=== PATIENT | female | born 1990 | race Caucasian/White ===

== ENCOUNTER 2020-04-15 04:11 | Emergency (ER) | payer BC, OTHER ==
[2020-04-15 04:18] VITALS: BP 142/108; PULSE 76; RESP 18; TEMP 98
[2020-04-15] MEDS ORDERED: CEPHALEXIN 500 MG CAP PO STA (04:30)
[2020-04-15] MEDS ORDERED: CEPHALEXIN 500MG STARTER PACK 4 CAP BTL PO STA (04:30)
--- NOTE | 2020-04-15 04:30 | ED ---
Extremity Problem HPI - General Chief complaint: Skin/Abscess/Foreign Body Stated complaint: Foot Pain Time Seen by Provider: 04/15/20 04:12 Source: patient, RN notes reviewed, old records reviewed Mode of arrival: ambulatory Limitations: no limitations - History of Present Illness Initial comments: This is a 29-year-old female ER for evaluation, patient presents to the ER today for evaluation regarding foot pain patient does have current right states great toe pain secondary to ingrown toenail. Patient has noticed mild drainage from that toe. Otherwise no injuries noted. MD Complaint: other (R great toe pain, ingrown toenail) -: month(s) Location: right, toe (great toe) Radiation: distal Severity scale (1-10): 6 Quality: stabbing Consistency: constant Improves with: nothing Worsens with: nothing Associated Symptoms: denies other symptoms - Related Data Home Medications Medication Instructions Recorded Confirmed Amitriptyline HCl [Elavil] 3 tab PO DAILY 09/13/14 09/13/14 Levothyroxine Sodium [Synthroid] 1 tab PO DAILY 09/13/14 09/13/14 Phentermine HCl [Adipex-P] 1 tab PO DAILY 09/13/14 09/13/14 metFORMIN HCL [Glucophage] 1 tab PO BID 09/13/14 09/13/14 Allergies Allergy/AdvReac Type Severity Reaction Status Date / Time morphine AdvReac Hallucinati Verified 04/15/20 04:18 ons Review of Systems ROS Statement: Those systems with pertinent positive or pertinent negative responses have been documented in the HPI. ROS Other: All systems not noted in ROS Statement are negative. Past Medical History Past Medical History: Thyroid Disorder Additional Past Medical History / Comment(s): insulin resistance History of Any Multi-Drug Resistant Organisms: None Reported Past Surgical History: Section Past Psychological History: No Psychological Hx Reported Smoking Status: Never smoker Past Alcohol Use History: None Reported Past Drug Use History: None Reported General Exam Limitations: no limitations General appearance: alert, in no apparent distress Head exam: Present: atraumatic, normocephalic, normal inspection Eye exam: Present: normal appearance, PERRL, EOMI. Absent: scleral icterus, conjunctival injection, periorbital swelling ENT exam: Present: normal exam, mucous membranes moist Neck exam: Present: normal inspection. Absent: tenderness, meningismus, lymphadenopathy Respiratory exam: Present: normal lung sounds bilaterally. Absent: respiratory distress, wheezes, rales, rhonchi, stridor Cardiovascular Exam: Present: regular rate, normal rhythm, normal heart sounds. Absent: systolic murmur, diastolic murmur, rubs, gallop, clicks GI/Abdominal exam: Present: soft, normal bowel sounds. Absent: distended, tenderness, guarding, rebound, rigid Extremities exam: Present: normal inspection, full ROM, normal capillary refill, other (R ingrown toenail). Absent: tenderness, pedal edema, joint swelling, calf tenderness Back exam: Present: normal inspection Neurological exam: Present: alert, oriented X3, CN II-XII intact Psychiatric exam: Present: normal affect, normal mood Skin exam: Present: warm, dry, intact, normal color. Absent: rash Course Vital Signs 04/15/20 04:16 Temperature 98 F Pulse Rate 76 Respiratory 18 Rate Blood Pressure 142/108 O2 Sat by Pulse 99 Oximetry - Reevaluation(s) Reevaluation #1: 04/15/20 04:29 medical record is reviewed Reevaluation #2: 04/15/20 04:29 patients pain is controlled Medical Decision Making - Medical Decision Making 29 female to the ED co R great toe pain, ingrown toenail. Disposition Clinical Impression: Ingrown right big toenail Disposition: HOME SELF-CARE Condition: Good Instructions (If sedation given, give patient instructions): Ingrown Nail (ED) Is patient prescribed a controlled substance at d/c from ED?: No Referrals: None,Stated [Primary Care Provider] - 1-2 days
== END 2020-04-15 04:51 | disposition home or self-care (01) ==
LOC: EC 04:11
DX: L60.0 Ingrowing nail (principal); E07.9 Disorder of thyroid, unspecified; Z79.899 Other long term (current) drug therapy; Z79.890 Hormone replacement therapy; Z79.84 Long term (current) use of oral hypoglycemic drugs; Z88.5 Allergy status to narcotic agent
CPT/HCPCS: 99283

== ENCOUNTER 2020-06-09 15:01 | Emergency (ER) | payer OTHER ==
[2020-06-09 15:06] VITALS: BP 137/91; PULSE 93; RESP 16; TEMP 98.3
--- NOTE | 2020-06-09 15:18 | ED ---
Fall HPI - General Chief Complaint: Fall Stated Complaint: Fall, head pain, back pain Time Seen by Provider: 06/09/20 15:10 Source: patient, RN notes reviewed Mode of arrival: ambulatory - History of Present Illness Initial Comments: Patient is 22-year-old female presents emergency department after being sent here from [facility] urgent care. She noted that she fell last night while trying to get out of her car. She noted that she stepped out foot slipped out from under and she kind of slid out of her car hit her tailbone on a lump of ice and then hit her head on the running board of her car. She denied any loss of consciousness change in vision. She noted that she went to urgent care strictly because her tailbone was sore and she wanted to get it checked out. Dr. Gillespie may be centered emergency room due to her saying that she also hit her head and was having a mild headache. She stated that the pain is about a 5 out of 10 currently and does not want pain medication as she is breast-feeding and took Motrin before she went to urgent care. She denied any chest pain first breath headache nausea vomiting diarrhea constipation fever fatigue chills change in vi desiree weakness numbness tingling. - Related Data Home Medications Medication Instructions Recorded Confirmed Amitriptyline HCl [Elavil] 3 tab PO DAILY 09/13/14 09/13/14 Levothyroxine Sodium [Synthroid] 1 tab PO DAILY 09/13/14 09/13/14 Phentermine HCl [Adipex-P] 1 tab PO DAILY 09/13/14 09/13/14 metFORMIN HCL [Glucophage] 1 tab PO BID 09/13/14 09/13/14 Previous Rx's Medication Instructions Recorded Cephalexin [Keflex] 500 mg PO Q8HR #21 cap 04/15/20 Allergies Allergy/AdvReac Type Severity Reaction Status Date / Time morphine AdvReac Hallucinati Verified 06/09/20 15:06 ons Review of Systems ROS Statement: Those systems with pertinent positive or pertinent negative responses have been documented in the HPI. ROS Other: All systems not noted in ROS Statement are negative. Past Medical History Past Medical History: Hypertension, Thyroid Disorder Additional Past Medical History / Comment(s): insulin resistance History of Any Multi-Drug Resistant Organisms: None Reported Past Surgical History: Section Past Psychological History: No Psychological Hx Reported Smoking Status: Never smoker Past Alcohol Use History: None Reported Past Drug Use History: None Reported General Exam Limitations: no limitations General appearance: alert, in no apparent distress Head exam: Present: atraumatic, normocephalic, normal inspection Eye exam: Present: normal appearance, PERRL, EOMI. Absent: scleral icterus, conjunctival injection, periorbital swelling ENT exam: Present: normal exam, mucous membranes moist Neck exam: Present: normal inspection. Absent: tenderness, meningismus, lymphadenopathy Respiratory exam: Present: normal lung sounds bilaterally. Absent: respiratory distress, wheezes, rales, rhonchi, stridor Cardiovascular Exam: Present: regular rate, normal rhythm, normal heart sounds. Absent: systolic murmur, diastolic murmur, rubs, gallop, clicks Extremities exam: Present: normal inspection, full ROM, normal capillary refill. Absent: tenderness, pedal edema, joint swelling, calf tenderness Back exam: Present: normal inspection, tenderness (And the sacrum coccyx area to mild palpation.) Neurological exam: Present: alert, oriented X3, CN II-XII intact Psychiatric exam: Present: normal affect, normal mood Skin exam: Present: warm, dry, intact, normal color. Absent: rash Course Vital Signs 06/09/20 15:03 Temperature 98.3 F Pulse Rate 93 Respiratory 16 Rate Blood Pressure 137/91 O2 Sat by Pulse 94 L Oximetry Medical Decision Making - Medical Decision Making 22-year-old female complaining of tailbone pain and headache. Status post fall last night. Skull x-ray and x-ray of the sacrum coccyx ordered. Patient denied any pain medication as she is breast-feeding and oriented Motrin. Case discussed with Dr. Hernandez, it was decided the patient to discharge home. - Radiology Data Radiology results: report reviewed, image reviewed Skull x-ray: Normal 4 view. Normal sacrum and coccyx. Disposition Clinical Impression: Fall, Contusion of sacrum Disposition: HOME SELF-CARE Condition: Stable Instructions (If sedation given, give patient instructions): Fall Prevention (ED) Additional Instructions: Please return to the Emergency Department if symptoms worsen or any other concerns. Follow-up with primary care 1-2 days. Continue to take [id number] pain medication as needed for medicine. Is patient prescribed a controlled substance at d/c from ED?: No Referrals: None,Stated [Primary Care Provider] - 1-2 days Time of Disposition: 16:20
--- NOTE | 2020-06-09 15:58 | XR ---
EXAMINATION TYPE: XR skull complete DATE OF EXAM: 06/09/2020 COMPARISON: None HISTORY: Fall TECHNIQUE: 4 view skull FINDINGS: No acute fractures are evident. The sella is normal. Soft tissues appear unremarkable. IMPRESSION: 1. Normal 4 view skull
--- NOTE | 2020-06-09 15:58 | XR ---
EXAMINATION TYPE: XR sacrum coccyx DATE OF EXAM: 06/09/2020 COMPARISON: None HISTORY: Fall, pain TECHNIQUE: Sacrum and coccyx are examined in 3 views. FINDINGS: No acute fracture or dislocation is evident. Sacrococcygeal alignment appears normal. Sacroiliac join ts are normal. Follow-up can be performed for continued pain. IMPRESSION: 1. Normal sacrum and coccyx
== END 2020-06-09 16:29 | disposition home or self-care (01) ==
LOC: EC 15:01
DX: S30.0XXA Contusion of lower back and pelvis, initial encounter (principal); R51.9 Headache, unspecified; Z88.5 Allergy status to narcotic agent; I10 Essential (primary) hypertension; E07.9 Disorder of thyroid, unspecified; Z79.890 Hormone replacement therapy; Z79.899 Other long term (current) drug therapy; W19.XXXA Unspecified fall, initial encounter; Y92.89 Other specified places as the place of occurrence of the external cause
CPT/HCPCS: 70260; 72220; 99283

== ENCOUNTER → 2021-06-30 | Outpatient (CLI) | payer BC, OTHER ==
--- NOTE | 2021-06-30 10:17 | US ---
EXAMINATION TYPE: US abdomen complete DATE OF EXAM: 06/30/2021 COMPARISON: NONE CLINICAL HISTORY: 31-year-old female R10.11 RUQ PAIN. TECHNIQUE: Multiple sonographic images of the abdomen are obtained. FINDINGS: EXAM MEASUREMENTS: Liver Length: 19.1 cm Gallbladder Wall: 0.19 cm CBD: 0.49 cm Spleen: 13.4 cm Right Kidney: 11.5 x 5.3 x 4.1 cm Left Kidney: 11.0 x 4.9 x 4.4 cm Open Hearth Door Liner notes: Limited due to overlying bowel gas. Pancreas: Suboptimal visualization due to attenuation from the liver and bowel gas shadowing. Liver: Appears heterogeneous with increased attenuation and echogenicity. Mildly enlarged. Focal fat ty sparing along the gallbladder fossa measuring 2.8 x 1.6 x 1.5 cm. Gallbladder: Small calculi suggested at the neck of the gallbladder measuring up to 8 mm. No abnormal distention, wall thickening, or surrounding fluid. Evidence for sonographic Brown's sign: No CBD: Portions seen appear wnl. Spleen: Appears wnl. Right Kidney: Appearance of possible column of Javi. No hydronephrosis. Left Kidney: Anechoic area seen central upper to mid pole 2.6 x 1.2 x 0.7 cm-possible mild pelvicali ectasis. Upper IVC: Limited visibility. Abd Aorta: Appears to be wnl IMPRESSION: 1. Mild hepatomegaly (19.1 cm) with moderate to severe hepatic steatosis. 2. Suspect small gallstones measuring up to 8 mm. No ancillary findings of acute cholecystitis. 3. No biliary ductal dilatation. 4. There may be mild left-sided pelvicaliectasis, probably transient. Correlate for any left-sided ab dominal symptoms/renal colic or hematuria. Short interval follow-up ultrasound can be considered to r eassess the collecting system.
== END | disposition home or self-care (01) ==
LOC: RADUSWWP 07:32
PROVIDERS: ATTEND Family Medicine
DX: K76.0 Fatty (change of) liver, not elsewhere classified (principal); R16.0 Hepatomegaly, not elsewhere classified
CPT/HCPCS: 76700

== ENCOUNTER 2023-08-26 10:34 | Emergency (ER) | payer BC, OTHER ==
[2023-08-26 10:45] VITALS: RESP 16
--- NOTE | 2023-08-26 11:46 | ED ---
Lower Extremity Injury HPI - General Chief Complaint: Extremity Injury, Lower Stated Complaint: IHS-Injured L ankle Time Seen by Provider: 08/26/23 11:45 Source: patient, RN notes reviewed Mode of arrival: ambulatory Limitations: no limitations - History of Present Illness Initial Comments: 33-year-old female presenting to the ER with a chief complaint of left ankle injury. Patient states yesterday when walking and when she accidentally tripped on the carpet inverting her ankle. She is reporting most of her pain over the lateral malleolus. She reports a mild tingling sensation. She reports the pain was tolerable yesterday as she was taking ibuprofen. She woke up this morning and was in extreme pain and barely able to walk. Patient states she has been wearing a boot. She denies any other injuries from the incident. No other complaints at this time. - Related Data Home Medications Medication Instructions Recorded Confirmed Amitriptyline HCl [Elavil] 3 tab PO DAILY 09/13/14 09/13/14 Levothyroxine Sodium [Synthroid] 1 tab PO DAILY 09/13/14 09/13/14 Phentermine HCl [Adipex-P] 1 tab PO DAILY 09/13/14 09/13/14 metFORMIN HCL [Glucophage] 1 tab PO BID 09/13/14 09/13/14 Previous Rx's Medication Instructions Recorded Cephalexin [Keflex] 500 mg PO Q8HR #21 cap 04/15/20 Allergies Allergy/AdvReac Type Severity Reaction Status Date / Time morphine AdvReac Hallucinati Verified 08/26/23 10:40 ons Review of Systems ROS Statement: Those systems with pertinent positive or pertinent negative responses have been documented in the HPI. ROS Other: All systems not noted in ROS Statement are negative. Past Medical History Past Medical History: Hypertension, Thyroid Disorder Additional Past Medical History / Comment(s): insulin resistance History of Any Multi-Drug Resistant Organisms: None Reported Past Surgical History: Section Past Psychological History: No Psychological Hx Reported Smoking Status: Never smoker Past Alcohol Use History: None Reported Past Drug Use History: Marijuana General Exam Limitations: no limitations General appearance: alert, in no apparent distress Respiratory exam: Present: normal lung sounds bilaterally. Absent: respiratory distress, wheezes, rales, rhonchi, stridor Cardiovascular Exam: Present: regular rate, normal rhythm, normal heart sounds. Absent: systolic murmur, diastolic murmur, rubs, gallop, clicks Extremities exam: Present: tenderness (Lateral malleolus. Base of fifth metatarsal. 2+ dorsalis pedis pulse. Sensation intact.), normal capillary refill, other (Mild edema to lateral foot.). Absent: pedal edema, joint swelling, calf tenderness Neurological exam: Present: alert, oriented X3, CN II-XII intact Course Vital Signs 08/26/23 08/26/23 10:37 11:53 Temperature 98.4 F 98.1 F Pulse Rate 108 H 99 Respiratory 16 16 Rate Blood Pressure 137/85 131/82 O2 Sat by Pulse 97 99 Oximetry Medical Decision Making - Medical Decision Making Was pt. sent in by a medical professional or institution (, PA, RELIEF DOCKING MASTER, urgent care, hospital, or fci...) When possible be specific @ -No Did you speak to anyone other than the patient for history (EMS, parent, family, police, friend...)? What history was obtained from this source @ -No Did you review nursing and triage notes (agree or disagree)? Why? @ -I reviewed and agree with nursing and triage notes Were old charts reviewed (outside hosp., previous admission, EMS record, old EKG, old radiological studies, urgent care reports/EKG's, fci records)? Report findings @ -No old charts were reviewed Differential Diagnosis (chest pain, altered mental status, abdominal pain women, abdominal pain men, vaginal bleeding, weakness, fever, dyspnea, syncope, headache, dizziness, GI bleed, back pain, seizure, CVA, palpatations, mental health, musculoskeletal)? @ -Differential Musculoskeletal: Muscular strain, contusion, ligament sprain, fracture, arthritis, septic arthritis, bursitis, cellulitis, muscle spasm, nerve compression, DVT, arterial occlusion, herpes zoster, electrolyte abnormality, tumor.... This is not meant to be in all inclusive list EKG interpreted by me (3pts min.). @ -None X-rays interpreted by me (1pt min.). @ -Left foot and ankle x-rays interpreted by me significant for mild soft tissue swelling over lateral malleolus. No acute fractures or dislocations. CT interpreted by me (1pt min.). @ -None done U/S interpreted by me (1pt. min.). @ -None done What testing was considered but not performed or refused? (CT, X-rays, U/S, labs)? Why? @ -None What meds were considered but not given or refused? Why? @ -None Did you discuss the management of the patient with other professionals (lewis chopra i.e. , PA, RELIEF DOCKING MASTER, lab, RT, psych nurse, social media director, upper doubler, teacher, postal delivery officer, disability case manager)? Give summary @ -No Was smoking cessation discussed for >3mins.? @ -No Was critical care preformed (if so, how long)? @ -No Were there social determinants of health that impacted care today? How? (Homelessness, low income, unemployed, alcoholism, drug addiction, transportation, low edu. Level, literacy, decrease access to med. care, shelter, rehab)? @ -No Was there de-escalation of care discussed even if they declined (Discuss DNR or withdrawal of care, Hospice)? DNR status @ -No What co-morbidities impacted this encounter? (DM, HTN, Smoking, COPD, CAD, Cancer, CVA, ARF, Chemo, Hep., AIDS, mental health diagnosis, sleep apnea, morbid obesity)? @ -None Was patient admitted / discharged? Hospital course, mention meds given and route, prescriptions, significant lab abnormalities, going to OR and other pertinent info. @ -Discharge. 33-year-old female presented to the ER with a chief complaint of left ankle injury. History and physical exam completed. Vitals stable. Patient in no signs of acute distress and nontoxic-appearing. Left lower extremity neurovascular intact. Mild tenderness and edema to lateral malleolus. X-rays obtained and interpreted by me negative for acute fractures or dislocations. Patient refused analgesic medication. Results discussed with patient, all questions answered. I discussed conservative treatment. Return parameters discussed. Patient discharged in stable condition with follow-up to orthopedics, referral given. Patient verbally expressed understanding and agreement with care plan. Case discussed with ED attending, Dr. Otero. Undiagnosed new problem with uncertain prognosis? @ -No Drug Therapy requiring intensive monitoring for toxicity (Heparin, Nitro, Insulin, Cardizem)? @ -No Were any procedures done? @ -No Diagnosis/symptom? @ -Ankle sprain Acute, or Chronic, or Acute on Chronic? @ -Acute Uncomplicated (without systemic symptoms) or Complicated (systemic symptoms)? @ -Uncomplicated Side effects of treatment? @ -No Exacerbation, Progression, or Severe Exacerbation? @ -No Poses a threat to life or bodily function? How? (Chest pain, USA, MD, pneumonia, PE, COPD, DKA, ARF, appy, cholecystitis, CVA, Diverticulitis, Homicidal, Suicidal, threat to staff... and all critical care pts) @ -No - Radiology Data Radiology results: report reviewed, image reviewed Disposition Clinical Impression: Ankle sprain Disposition: HOME SELF-CARE Condition: Stable Instructions (If sedation given, give patient instructions): Ankle Sprain (ED) Additional Instructions: You may take [id number] Tylenol and Motrin for pain control. Follow-up with orthopedics if symptoms persist. Return to the ER for any new or worsening concerns. Is patient prescribed a controlled substance at d/c from ED?: No Referrals: Prashant Murguia DO [Primary Care Provider] - 1-2 days Juan Carlos Thompson DO [Doctor of Osteopathic Medicine] - 1-2 days Time of Disposition: 12:19
--- NOTE | 2023-08-26 11:57 | XR ---
EXAMINATION TYPE: XR ankle complete 3 views LT, XR foot complete 3 views LT DATE OF EXAM: 08/26/2023 Comparison: None Clinical History: 33-year-old female with lateral pain after injury Findings: Ankle: Ankle mortise is congruent with preservation of the distal tibiofibular overlap. Talar dome is intact . Circumferential soft tissue swelling. Small plantar heel spur. Subtalar joint align. Small delineat ion to the Achilles tendon. Foot: Type I accessory navicular. No acute fracture, subluxation, dislocation is seen. Impression (ankle and foot): Some circumferential soft tissue swelling at the ankle. No acute osseous abnormality seen.
[2023-08-26 12:56] VITALS: BP 126/78; PULSE 84; TEMP 97.8
== END 2023-08-26 12:36 | disposition home or self-care (01) ==
LOC: EC 10:34
DX: S93.402A Sprain of unspecified ligament of left ankle, initial encounter (principal); F12.90 Cannabis use, unspecified, uncomplicated; Z88.5 Allergy status to narcotic agent; W18.40XA Slipping, tripping and stumbling without falling, unspecified, initial encounter; Y93.01 Activity, walking, marching and hiking
CPT/HCPCS: 99283

== ENCOUNTER 2024-10-01 12:24 | Outpatient (CLI) | payer BC, OTHER ==
[2024-10-01 12:44] LABS: Glucose,Whole Blood 164 mg/dL (70-110)
[2024-10-01 13:17] LABS: Appearance,Urine Clear (Clear); Bacteria,Urine Rare /hpf; Bilirubin,Urine Negative (Negative); Blood,Urine Negative (Negative); Color,Urine Colorless; Glucose,Urine (UA) Negative (Negative); Ketones,Urine Negative (Negative); Leukocyte Esterase,Urine Moderate (Negative); Mucus,Urine Rare /hpf; Nitrite,Urine Negative (Negative); PH, Urine 6.5 (5.0-8.0); Protein,Urine Negative (Negative); Specific Gravity,Urine 1.018 (1.001-1.035); Squamous Epithelial Cell,Urine 5 /hpf (0-4); Urobilinogen,Urine <2.0 mg/dL (<2.0); WBC,Urine 2 /hpf (0-5)
[2024-10-01] MEDS: LACTATED RINGERS 1,000 ML IV SCH (13:41)
[2024-10-01 15:07] VITALS: BP 123/79; PULSE 93; RESP 18; TEMP 98.1
--- NOTE | 2024-10-19 11:30 | P.MSEPDOC ---
Presenting Problems - Arrival Data Date of Arrival on Unit: 10/01/24 Time of Arrival on Unit: 12:24 Mode of Transport: Ambulatory - Complaint OB-Reason for Admission/Chief Complaint: Vaginal Bleeding Comment: pink spotting when wiping, cramping with movement Medical History - Information : 3 Para: 1 Term: 1 : 0 Abortions: Spontaneous or Elective: 1 Number of Living Children: 1 - Gestational Age Gestational Age by GERONIMO (wks/days): 32 Weeks and 6 Days - History Complications: Prior Comment: Pre e & HELLP with previous delivery, uterine repair and blood transfusion Review of Systems - Review of Systems Constitutional: No problems Breast: No problems ENT: No problems Cardiovascular: No problems Respiratory: No problems Gastrointestinal: No problems Genitourinary: No problems Musculoskeletal: No problems Neurological: No problems Skin: No problems Vital Signs - Temperature Temperature: 98.1 F Temperature Source: Temporal Artery Scan - Pulse Right Sitting Brachial Pulse Rate: 93 Pulse Assessment Method: Automatic Cuff - Respirations Respiratory Rate: 18 Oxygen Delivery Method: Room Air O2 Sat by Pulse Oximetry: 98 - Blood Pressure Right Arm Sitting Blood Pressure: 123/79 Blood Pressure Mean: 93 Blood Pressure Source: Automatic Cuff Medical Screen Scoring - Cervical Exam Dilation (cm): 0 Effacement (%): 0 Station: -3 Membranes: Intact - Uterine Contractions Frequency From (mins): 2 Frequency To (mins): 5 Duration From (seconds): 40 Duration To (seconds): 60 Intensity: Mild Resting: Soft to palpation - Assessment - Baby A Baseline FHR: 145 Heart Rate - NICHD Category: Category I (Normal) NST: Reactive Physician Notification - Physician Notified Physician Notified Date: 10/01/24 Physician Notified Time: 15:06 Physician: Ever Quinones New Order Received: Yes (dc home) - Notification Comment Comment: Follow up with own ob Maternal Triage Index - Maternal Triage Index Presenting for scheduled procedure w/no complaint: No - Stat/Priority 1 Stat Priority 1: No - Urgent/Priority 2 Urgent Priority 2: Yes Provider Notified: Ever Quinones Provider Notified Time: 13:30 Criteria Met for Priority 2: spec with no blood present, cervix closed, no pain with contractions, IV fluids [id number] Disposition - Disposition OB Disposition: Discharge to home, Written follow up instructions reviewed Discharge Date: 10/01/24 Discharge Time: 15:07 I agree with the RN Medical Screening Exam: Yes Physician's MSE Comment: I have neither seen nor examined the patient. Case reviewed; plan agreed upon as documented in EMR&OBIX.: Yes Diagnosis: RELATED CONDITIONS, UNSPECIFIED, THIRD TRIMESTER
== END 2024-10-01 15:08 | disposition home or self-care (01) ==
LOC: FBPOP 12:24
PROVIDERS: ATTEND Obstetrics & Gynecology
DX: O46.93 Antepartum hemorrhage, unspecified, third trimester (principal); Z3A.32 32 weeks gestation of pregnancy; Z88.5 Allergy status to narcotic agent
CPT/HCPCS: 36415; 59025; 81001; 96360; 99214

== ENCOUNTER 2024-11-04 21:40 | Outpatient (CLI) | payer OTHER ==
[2024-11-04 23:43] VITALS: BP 128/92; PULSE 82; RESP 18; TEMP 96.3
--- NOTE | 2024-12-07 09:55 | P.MSEPDOC ---
Presenting Problems - Arrival Data Date of Arrival on Unit: 11/04/24 Time of Arrival on Unit: 21:40 Mode of Transport: Wheelchair - Complaint OB-Reason for Admission/Chief Complaint: PIH, Other Comment: Pt complaint of chest pain and high blood pressures. Pt is 5 days post delivered at [facility]. Medical History - Gestational Age Gestational Age by GERONIMO (wks/days): 37 Weeks and 5 Days - History Complications: Preeclampsia Review of Systems - Review of Systems Constitutional: No problems Breast: No problems ENT: No problems Cardiovascular: Chest pain Respiratory: No problems Gastrointestinal: No problems Genitourinary: No problems Musculoskeletal: No problems Neurological: No problems Skin: No problems Vital Signs - Temperature Temperature: 96.3 F Temperature Source: Temporal Artery Scan - Pulse Pulse Oximetery Pulse Rate: 82 Pulse Assessment Method: Pulse Oximetry - Respirations Respiratory Rate: 18 Oxygen Delivery Method: Room Air O2 Sat by Pulse Oximetry: 97 - Blood Pressure Right Arm Blood Pressure: 128/92 Blood Pressure Mean: 104 Blood Pressure Source: Automatic Cuff Physician Notification - Physician Notified Physician Notified Date: 11/04/24 Physician Notified Time: 21:57 Physician: Denisa Arteaga New Order Received: Yes - Notification Comment Comment: Reported on patient DOM 5 days post delivered at [facility] early for preeclampsia symptoms. Blood pressure readings reviewed. Pt on lasix for blood pressure. Reported pt has 5/10 constant stabbing chest pain. Orders to send patient to ER for complaint of chest pain. Maternal Triage Index - Stat/Priority 1 Stat Priority 1: No - Urgent/Priority 2 Urgent Priority 2: No - Prompt/Priority 3 Prompt Priority 3: No - Non-Urgent/Priority 4 Non-Urgent Priority 4: Yes Criteria Met for Priority 4: Pt is 5 days post delivered at [facility]. Pt complaint of chest pain and high blood pressures. Disposition - Disposition OB Disposition: Transfer to other dept./facility Transferred to:: To ER @[id number] Discharge Date: 11/04/24 Discharge Time: 22:15 I agree with the RN Medical Screening Exam: Yes Case reviewed; plan agreed upon as documented in EMR&OBIX.: Yes Comments: patient transferred to the Ed based on clinical status Diagnosis: OTHER SPECIFIED COMPLICATIONS OF LABOR AND DELIVERY
== END 2024-11-04 22:15 | disposition home or self-care (01) ==
LOC: FBPOP 21:40
PROVIDERS: ATTEND Obstetrics & Gynecology Obstetrics
DX: O14.93 Unspecified pre-eclampsia, third trimester (principal); Z3A.37 37 weeks gestation of pregnancy; Z88.5 Allergy status to narcotic agent
CPT/HCPCS: 99213; 99215

== ENCOUNTER 2024-11-04 22:16 | Emergency (ER) | payer OTHER ==
[2024-11-04 22:26] VITALS: TEMP 98.3
--- NOTE | 2024-11-04 22:41 | ED ---
Chest Pain HPI - General Chief Complaint: Chest Pain Stated Complaint: Chest pain Time Seen by Provider: 11/04/24 22:27 Source: patient, family Mode of arrival: wheelchair Limitations: no limitations - History of Present Illness Initial Comments: This patient is a 34-year-old woman with history of section 5 days ago due to developing preeclampsia. The patient arrives today to have evaluation of sharp substernal chest pain that started approximate hour ago while at rest. The patient also had some associated shortness of breath which has resolved. She has not noted any other associated symptoms. Patient denies leg pain. She has had some bilateral edema since the that she states is approximately unchanged. MD Complaint: chest pain Onset/Timin -: hour(s) Onset: during rest Pain Location: substernal Severity: moderate Quality: sharp Consistency: constant Improves With: nothing Worsens With: nothing Anginal Symptoms: dyspnea Treatments Prior to Arrival: none - Related Data Home Medications Medication Instructions Recorded Confirmed Furosemide [Lasix] 20 mg PO DAILY 11/04/24 11/04/24 Ibuprofen [Motrin] 600 mg PO Q6HR PRN 11/04/24 11/04/24 Allergies Allergy/AdvReac Type Severity Reaction Status Date / Time morphine AdvReac Hallucinati Verified 11/04/24 22:26 ons Review of Systems ROS Statement: Those systems with pertinent positive or pertinent negative responses have been documented in the HPI. ROS Other: All systems not noted in ROS Statement are negative. Constitutional: Denies: fever, chills, weakness Respiratory: Reports: as per HPI, dyspnea. Denies: cough Cardiovascular: Reports: as per HPI, chest pain, edema. Denies: palpitations, orthopnea, syncope Gastrointestinal: Denies: abdominal pain, nausea, vomiting, diarrhea, melena, hematochezia Genitourinary: Denies: dysuria, hematuria Musculoskeletal: Denies: back pain Skin: Denies: rash Neurological: Denies: headache, weakness, numbness Hematological/Lymphatic: Denies: easy bleeding EKG Findings - EKG Results: EKG: interpreted by OXANAD, sinus rhythm (Rate 81 bpm), normal axis, normal QRS, normal ST/T, no acute changes Past Medical History Past Medical History: Hypertension, Thyroid Disorder Additional Past Medical History / Comment(s): insulin resistance History of Any Multi-Drug Resistant Organisms: None Reported Past Surgical History: Section Past Psychological History: No Psychological Hx Reported Smoking Status: Never smoker Past Alcohol Use History: None Reported Past Drug Use History: None Reported General Exam Limitations: no limitations General appearance: alert, in no apparent distress Head exam: Present: atraumatic, normocephalic Eye exam: Present: normal appearance. Absent: scleral icterus, conjunctival injection Neck exam: Present: normal inspection Respiratory exam: Present: normal lung sounds bilaterally. Absent: respiratory distress, wheezes, rales, rhonchi, stridor, chest wall tenderness, accessory muscle use Cardiovascular Exam: Present: regular rate, normal rhythm, normal heart sounds. Absent: systolic murmur, diastolic murmur, rubs, gallop GI/Abdominal exam: Present: soft. Absent: distended, tenderness, guarding, rebound, rigid, mass, pulsatile mass Extremities exam: Present: normal inspection, normal capillary refill, pedal edema (Trace edema at the ankles bilaterally). Absent: calf tenderness Back exam: Present: normal inspection. Absent: CVA tenderness (R), CVA tenderness (L) Neurological exam: Present: alert Skin exam: Present: warm, dry, intact, normal color. Absent: rash Course Vital Signs 11/04/24 11/05/24 11/05/24 22:23 00:24 01:00 Temperature 98.3 F Pulse Rate 89 88 70 Respiratory 18 16 16 Rate Blood Pressure 134/87 132/82 140/82 O2 Sat by Pulse 98 100 98 Oximetry 11/05/24 01:31 Temperature Pulse Rate 79 Respiratory 16 Rate Blood Pressure 128/72 O2 Sat by Pulse 99 Oximetry Chest Pain MDM - MDM The patient had chest x-ray that I interpreted as negative for acute infiltrate, pneumothorax, congestive heart failure The patient had duplex Doppler study of the legs that I interpreted as negative for acute DVT. Was pt. sent in by a medical professional or institution (, PA, RN L AND D, urgent care, hospital, or fpc...) When possible be specific @ -[No] Did you speak to anyone other than the patient for history (EMS, parent, family, police, friend...)? What history was obtained from this source @ -[No] Did you review nursing and triage notes (agree or disagree)? Why? @ -[I reviewed and agree with nursing and triage notes] Were old charts reviewed (outside hosp., previous admission, EMS record, old EKG, old radiological studies, urgent care reports/EKG's, fpc records)? Report findings @ -[No old charts were reviewed] Differential Diagnosis (chest pain, altered mental status, abdominal pain women, abdominal pain men, vaginal bleeding, weakness, fever, dyspnea, syncope, headache, dizziness, GI bleed, back pain, seizure, CVA, palpatations, mental health, musculoskeletal)? @ -Differential Chest Pain: Stable Angina, Unstable Angina, STEMI, NSTEMI Aortic Dissection, Pneumothorax, Musculoskeletal, Esophageal Spasm GERD, Cholecystitis, Pancreatitis, Zoster, this is not meant to be an all-inclusive list. EKG interpreted by me (3pts min.). @ -[I interpreted as above] X-rays interpreted by me (1pt min.). @ -[I interpreted as above CT interpreted by me (1pt min.). @ -[None done] U/S interpreted by me (1pt. min.). @ -[I interpreted as above What testing was considered but not performed or refused? (CT, X-rays, U/S, labs)? Why? @ -[None] What meds were considered but not given or refused? Why? @ -[None] Did you discuss the management of the patient with other professionals (professionals i.e. , PA, RN L AND D, lab, RT, psych nurse, social worker masters, supply clerk, teacher, president and chief operating officer, immigration case manager)? Give summary @ -[No] Was smoking cessation discussed for >3mins.? @ -[No] Was critical care preformed (if so, how long)? @ -[No] Were there social determinants of health that impacted care today? How? (Homelessness, low income, unemployed, alcoholism, drug addiction, transportation, low edu. Level, literacy, decrease access to med. care, group home, rehab)? @ -[No] Was there de-escalation of care discussed even if they declined (Discuss DNR or withdrawal of care, Hospice)? DNR status @ -[No] What co-morbidities impacted this encounter? (DM, HTN, Smoking, COPD, CAD, Cancer, CVA, ARF, Chemo, Hep., AIDS, mental health diagnosis, sleep apnea, morbid obesity)? @ -[Recent delivery Was patient admitted / discharged? Hospital course, mention meds given and route, prescriptions, significant lab abnormalities, going to OR and other pertinent info. @ -[Patient is a 34-year-old woman recent with chest pain and on arrival was hypertensive. The patient is feeling better. The workup not remarkable. The patient does have mild elevation of LDH, AST ALT. 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 We discussed warning signs for preeclampsia/eclampsia and discussed the appropriate further care and follow-up. Undiagnosed new problem with uncertain prognosis? @ -[No] Drug Therapy requiring intensive monitoring for toxicity (Heparin, Nitro, Insulin, Cardizem)? @ -[No] Were any procedures done? @ -[No] Diagnosis/symptom? @ -[Acute chest pain mild hypertension Acute, or Chronic, or Acute on Chronic? @ -[Acute Uncomplicated (without systemic symptoms) or Complicated (systemic symptoms)? @ -[Uncomplicated Side effects of treatment? @ -[No] Exacerbation, Progression, or Severe Exacerbation? @ -[No] Poses a threat to life or bodily function? How? (Chest pain, [place], [place], pneumonia, PE, COPD, DKA, ARF, appy, cholecystitis, CVA, Diverticulitis, Homicidal, Suicidal, threat to staff... and all critical care pts) @ -[Requires close follow-up All treatments are based on ideal body weight as in ED triage Disposition Clinical Impression: Chest pain Disposition: HOME SELF-CARE Condition: Good Instructions (If sedation given, give patient instructions): Chest Pain (ED) Is patient prescribed a controlled substance at d/c from ED?: No Referrals: None,Stated [REFERRING] - 1-2 days
[2024-11-04 23:04] LABS: Basophils # (A) 0.02 10*3/uL (0.00-0.10); Basophils % (A) 0.2 %; Eosinophils # (A) 0.13 10*3/uL (0.04-0.35); Eosinophils % (A) 1.6 %; HCT 29.8 % (37.2-46.3); HGB 9.8 g/dL (12.0-15.0); Lymphocytes # (A) 2.87 10*3/uL (0.90-5.00); Lymphocytes % (A) 34.9 %; MCH 28.2 pg (27.0-32.0); MCHC 32.9 g/dL (32.0-37.0); MCV 85.6 fL (80.0-97.0); Monocytes # (A) 0.48 10*3/uL (0.20-1.00); Monocytes % (A) 5.8 %; Neutrophils # (A) 4.69 10*3/uL (1.80-7.70); Neutrophils % (A) 57.1 %; Platelet Count 220 10*3/uL (140-440); RBC 3.48 10*6/uL (4.10-5.20); RDW 13.5 % (11.5-14.5); WBC 8.22 10*3/uL (4.50-10.00)
[2024-11-04 23:27] LABS: ALT 50 U/L (4-34); AST 45 U/L (14-36); African American GFR (CKD) >90 (>60 ml/min/1.73 sqM); Albumin 3.2 g/dL (3.5-5.0); Alkaline Phosphatase 99 U/L (38-126); Anion Gap 6 mmol/L; Blood Urea Nitrogen 15 mg/dL (7-17); Calcium 8.9 mg/dL (8.4-10.2); Carbon Dioxide 23 mmol/L (22-30); Chloride 109 mmol/L (98-107); Glucose 79 mg/dL (74-99); LDH 275 U/L (120-246); Magnesium 2.1 mg/dL (1.6-2.3); Non-African American GFR(CKD) >90 (>60 ml/min/1.73 sqM); Potassium 3.8 mmol/L (3.5-5.1); Sodium 138 mmol/L (137-145); Total Protein 6.0 g/dL (6.3-8.2); Uric Acid 5.8 mg/dL (3.7-7.4)
[2024-11-04 23:42] LABS: INR 0.8 (<1.2); Partial Thromboplastin Time 21.9 sec (22.0-30.0); Prothrombin Time 9.4 sec (10.0-12.5)
--- NOTE | 2024-11-05 00:12 | XR ---
EXAM: XR Chest, 2 Views CLINICAL HISTORY: ITS.REASON XR Reason: Chest Pain TECHNIQUE: Frontal and lateral views of the chest. COMPARISON: No relevant prior studies available. FINDINGS: Lungs: Unremarkable. No consolidation. Pleural space: Unremarkable. No pneumothorax. Heart: Unremarkable. No cardiomegaly. Mediastinum: Unremarkable. Bones/joints: Unremarkable. IMPRESSION: No consolidation.
[2024-11-05 00:25] VITALS: RESP 16
[2024-11-05] MEDS: ACETAMINOPHEN TAB 325 MG TAB PO STA (01:10)
[2024-11-05] MEDS: hydrALAZINE HCL 20 MG/ML 1 ML VIAL IVP STA (01:11)
[2024-11-05 01:31] VITALS: BP 128/72; PULSE 79
--- NOTE | 2024-11-05 01:56 | US ---
EXAM: US Duplex Bilateral Lower Extremities Veins CLINICAL HISTORY: ITS.REASON US Reason: edema, possible DVT TECHNIQUE: Real-time duplex ultrasound scan of the bilateral lower extremity veins integrating B-mode two-dimensional vascular structure, Doppler spectral analysis, color flow Doppler imaging and compression. COMPARISON: No relevant prior studies available. FINDINGS: Right deep veins: No DVT in the right common femoral, femoral, proximal deep femoral or popliteal veins. The veins demonstrate normal color flow, are normally compressible, with normal phasic flow and/or augmentation response. Right superficial veins: No thrombus in the visualized right great saphenous vein. Left deep veins: No DVT in the left common femoral, femoral, proximal deep femoral or popliteal veins. The veins demonstrate normal color flow, are normally compressible, with normal phasic flow and/or augmentation response. Left superficial veins: No thrombus in the visualized left great saphenous vein. Soft tissues: No acute findings. IMPRESSION: No evidence of acute DVT.
== END 2024-11-05 02:13 | disposition home or self-care (01) ==
LOC: EC 22:16
DX: R07.9 Chest pain, unspecified (principal); Z88.5 Allergy status to narcotic agent
CPT/HCPCS: 36415; 93005; 80053; 83615; 83735; 84550; 84484; 85025; 85610; 85730; 71046; 93970; 99285; 96374; J0360